=== PATIENT | female | born 1985 | race Two or more races ===

== ENCOUNTER 2021-02-25 11:29 | Outpatient (CLI) | payer OTHER, SELFPAY ==
[2021-02-25 12:31] LABS: Basophils % 0.5 %; Eosinophils # 0.1 10^3/uL (0.0-0.8); Eosinophils % 0.9 %; Hematocrit 30.7 % (37.0-47.0); Hemoglobin 9.6 g/dL (11.5-15.3); Lymphocytes # 1.3 10^3/uL (0.8-4.8); Mean Corpuscular HGB Conc 31.3 g/dL (30.0-36.0); Mean Corpuscular Hemoglobin 23.1 pg (28.0-34.0); Mean Corpuscular Volume 73.8 fl (81-99); Mean Platelet Volume 9.9 fL (7.4-10.4); Monocytes # 0.6 10^3/uL (0.2-0.9); Monocytes % 10.4 %; Neutrophils # 3.71 10^3/uL (1.8-7.7); Neutrophils % 65.2 %; Nucleated Red Blood Cells % 0 %; Platelet Count 198 10^3/cmm (130-400); Red Blood Count 4.16 10^6/uL (4.1-5.3); Red Cell Distribution Width 15.9 % (12.1-15.1); White Blood Count 5.7 10^3/uL (4.0-10.0)
--- NOTE | 2021-02-25 14:49 | ONC FU_ITS ---
Dr. Newman follow up note Patient: Tiara Gutierrez Unit #: [id number]: 1985 Dicatated By: Lisa Newman M.D.Date of Visit:Feb 25, 2021 Onc Med Follow-up/Prog Note History of Present Illness: Mrs Tiara Gutierrez, is a 35-year-old female with a history of iron deficiency anemia due to heavy menses since age 15, as per patient she has taken oral iron off and on ,on many occasions and eventually started having GI intolerance including constipation and later on she switched to supplements which she is tolerating well. But that did not help her much and no significant improvement in iron deficiency anemia eventually she saw her layboy operator when she was in [place], as per patient she was given parenteral iron every week x3 then a week off and then repeat last time she saw her layboy operator in September 2020 as after that she moved to [place], patient established her care with PMD here in [place] and on January 02, 2021, lab work-up done showed white blood count 8.1 hemoglobin 11.5 hematocrit 37.2% platelets 270,000 MCV 78.6. As per patient she has seen [employer] [employer] in the past and was offered hormonal therapy for endometrial hyperplasia which she took it for 3 months and it did help her menses flow, patient was also offered endometrial ablation to slow down menses flow but patient declined as she is considering having more babies. Patient has history of GI bleeding on couple of occasions in the past but not recently, denies any indigestion denies any nausea or vomiting denies any melena or hematochezia. Denies any jaundice denies any shortness of breath or palpitation. Patient also has history of left-sided weakness due to stroke as per patient work-up done at that time did not show the etiology of stroke but she did get clot Buster medicine infusion.,. Patient denies any night sweats, denies any weight loss, denies any recurrent fever, denies any peripheral lymphadenopathy or abdominal fullness Medications: Vitamin and Mineral 1 Tablet Oral daily Allergies: avocados, Bee Venom, Demerol, Demerol, Meperidine HCl, Mushrooms, and Wasp Venom. Review of Systems: Review of Systems is not available for this patient. Vital Signs: Performed on Feb 25, 2021 13:04 Height - 68 in Weight - 143.2 lbs (HIGH) BSA - 1.77 sq.m BMI - 21.77 Temperature - 98.7 F Pulse - 84 /min Respiration - 16 /min BP - 99/63 mm(hg) O2 Sat - 99 % Pain - 0 Fatigue - 6 Performance Status: 0 - Fully active, able to carry on all predisease activities without restrictions. (ECOG) Physical Examination: ENMT - No mouth sores, no thrush, no jaundice, Respiratory - Lungs are clear to auscultation, Cardiovascular - Regular rate and rhythm of heart, Abdomen - Soft, bowel sounds present, Extremities - No visible edema. Lab/Imaging: Most recent lab results are not available for this patient. Impression: Iron deficiency anemia etiology could be multifactorial including but not limited to heavy menstrual periods, or chronic GI blood loss or iron malabsorption. 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 ADHD, PTSD, Anxiety/depression, Chronic lower back pain, Asthma Plan: Discussed with patient regarding her labs white blood count 5.7 hemoglobin 9.6 hematocrit 30.7 platelets 198,000 MCV 73.8 Ferritin checked on January 02, 2021 was 4 Clinically, patient is doing reasonably well now with progressive iron deficiency anemia probably multifactorial including due to heavy menses flow., Patient is following with [employer] physician , As patient has history of GI intolerance to oral iron, and in the recent past she was treated with parenteral iron which she tolerated well, at this point, will consider Injectafer 750 mg IV weekly x2 and then she will return to clinic 1 month after second dose with CBC and iron studies As far as episode of fresh blood per rectum is concerned, could be due to hemorrhoids or anal tear but need to rule out GI pathology, we will refer her to gastroenterology for EGD and colonoscopy. Signed By: Lisa Newman M.D. <<Signature on File>>
== END 2021-02-25 11:30 | disposition home or self-care (01) ==
PROVIDERS: Visit Provider Internal Medicine Hematology & Oncology
DX: D50.9 Iron deficiency anemia, unspecified (principal); Z86.73 Personal history of transient ischemic attack (TIA), and cerebral infarction without residual deficits; F90.9 Attention-deficit hyperactivity disorder, unspecified type; F43.12 Post-traumatic stress disorder, chronic; F41.9 Anxiety disorder, unspecified; F32.9 Major depressive disorder, single episode, unspecified; M54.59 Other low back pain; G89.29 Other chronic pain; J45.909 Unspecified asthma, uncomplicated; Z79.899 Other long term (current) drug therapy
CPT/HCPCS: 36415; 85025; 99204

== ENCOUNTER 2021-03-04 07:14 | Outpatient (CLI) | payer OTHER, SELFPAY ==
[2021-03-04] MEDS: ferric carboxy (IVPB) 750 MG in sodium chloride 0.9% (100 ml) 100 ML 460 MG IV (09:30)
== END 2021-03-04 07:15 | disposition home or self-care (01) ==
PROVIDERS: Visit Provider Internal Medicine Hematology & Oncology
DX: D50.9 Iron deficiency anemia, unspecified (principal)
CPT/HCPCS: 96365; J1439

== ENCOUNTER 2021-03-11 06:48 | Outpatient (CLI) | payer OTHER, SELFPAY ==
[2021-03-11] MEDS: ferric carboxy (IVPB) 750 MG in sodium chloride 0.9% (100 ml) 100 ML 460 MG IV (09:00)
== END 2021-03-11 06:49 | disposition home or self-care (01) ==
PROVIDERS: PCP Nurse Practitioner; Visit Provider Internal Medicine Hematology & Oncology
DX: D50.9 Iron deficiency anemia, unspecified (principal)
CPT/HCPCS: 96365; J1439

== ENCOUNTER → 2021-04-21 11:11 | Outpatient (BNVA) | payer OTHER, SELFPAY | PROVIDERS: PCP Nurse Practitioner; Referring Provider Nurse Practitioner; Visit Provider Specialist | DX: R41.3 Other amnesia (principal); R53.1 Weakness; G43.109 Migraine with aura, not intractable, without status migrainosus | CPT/HCPCS: 99204 ==

== ENCOUNTER 2021-04-29 10:11 | Outpatient (CLI) | payer OTHER, SELFPAY ==
[2021-04-29 10:34] LABS: Basophils % 0.3 %; Eosinophils % 0.1 %; Hematocrit 37.6 % (37.0-47.0); Hemoglobin 12.1 g/dL (11.5-15.3); Lymphocytes # 0.7 10^3/uL (0.8-4.8); Lymphocytes % 10.6 %; Mean Corpuscular HGB Conc 32.2 g/dL (30.0-36.0); Mean Corpuscular Hemoglobin 27.2 pg (28.0-34.0); Mean Corpuscular Volume 84.5 fl (81-99); Mean Platelet Volume 10.8 fL (7.4-10.4); Monocytes # 0.5 10^3/uL (0.2-0.9); Monocytes % 7.1 %; Neutrophils % 81.6 %; Nucleated Red Blood Cells % 0 %; Platelet Count 211 10^3/cmm (130-400); Red Blood Count 4.45 10^6/uL (4.1-5.3); Red Cell Distribution Width 21.1 % (12.1-15.1); White Blood Count 6.9 10^3/uL (4.0-10.0)
[2021-04-29 11:04] LABS: Ferritin 237 ng/mL (15-150); Iron 79 ug/dL (37-145); Percent Saturation 35.5 % (20-50); Total Iron Binding Capacity 222 mcg/dl; Unsaturated Iron Binding 143 ug/dL (112-347)
--- NOTE | 2021-04-30 16:47 | ONC FU_ITS ---
Dr. Newman follow up note Patient: Tiara Gutierrez Unit #: [id number]: 1985 Dicatated By: Lisa Newman M.D.Date of Visit:Apr 29, 2021 Onc Med Follow-up/Prog Note History of Present Illness: Mrs Tiara Gutierrez, is a 35-year-old female with a history of iron deficiency anemia due to heavy menses since age 15, as per patient she has taken oral iron off and on ,on many occasions and eventually started having GI intolerance including constipation and later on she switched to supplements which she is tolerating well. But that did not help her much and no significant improvement in iron deficiency anemia eventually she saw her outpatient surgery rn when she was in [place], as per patient she was given parenteral iron every week x3 then a week off and then repeat last time she saw her outpatient surgery rn in September 2020 as after that she moved to [place], patient established her care with PMD here in [place] and on January 02, 2021, lab work-up done showed white blood count 8.1 hemoglobin 11.5 hematocrit 37.2% platelets 270,000 MCV 78.6. As per patient she has seen [facility] in the past and was offered hormonal therapy for endometrial hyperplasia which she took it for 3 months and it did help her menses flow, patient was also offered endometrial ablation to slow down menses flow but patient declined as she is considering having more babies. Patient has history of GI bleeding on couple of occasions in the past but not recently, denies any indigestion denies any nausea or vomiting denies any melena or hematochezia. Denies any jaundice denies any shortness of breath or palpitation. Patient also has history of left-sided weakness due to stroke as per patient work-up done at that time did not show the etiology of stroke but she did get clot Buster medicine infusion.,. Patient denies any night sweats, denies any weight loss, denies any recurrent fever, denies any peripheral lymphadenopathy or abdominal fullness Status post Injectafer 750 mg weekly x2 in February 2021 with excellent response e.g. normalization of iron deficiency anemia Came for follow-up, denies any specific complaints, no fever chills, no nausea or vomiting, no diarrhea or constipation, no melena hematochezia, no hemoptysis hematemesis, no more episode of fresh blood per rectum, as per patient she was scheduled to see Dr. Linares last week but canceled it due to bad weather, now she will call and reschedule for EGD and colonoscopy. She was given parenteral iron Injectafer 750 mg weekly x2 in February 2021, tolerated well, since then she is feeling more energetic Medications: Vitamin and Mineral 1 Tablet Oral daily Allergies: avocados, Bee Venom, Demerol, Demerol, Meperidine HCl, Mushrooms, and Wasp Venom. Review of Systems: Review of Systems is not available for this patient. Vital Signs: Performed on Apr 29, 2021 13:40 Height - 68.00 in Weight - 136.8 lbs (LOW) BSA - 1.74 sq.m BMI - 20.80 Temperature - 98.0 F (LOW) Pulse - 88 /min Respiration - 16 /min BP - 107/64 mm(hg) O2 Sat - 99 % Pain - 0 Fatigue - 4 Performance Status: 0 - Fully active, able to carry on all predisease activities without restrictions. (ECOG) Physical Examination: ENMT - No mouth sores, no thrush, no jaundice, Respiratory - Lungs are clear to auscultation, Cardiovascular - Regular rate and rhythm of heart, Abdomen - Soft, bowel sounds present, Extremities - No visible edema. Lab/Imaging: Most recent lab results are not available for this patient. Impression: Iron deficiency anemia etiology could be multifactorial including but not limited to heavy menstrual periods, or chronic GI blood loss or iron malabsorption. 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 Linares's office to reschedule EGD and colonoscopy, which was canceled earlier due to bad weather. Return to clinic in 3 months with CBC and iron studies Signed By: Lisa Newman M.D. <<Signature on File>>
== END 2021-04-29 10:12 | disposition home or self-care (01) ==
PROVIDERS: PCP Nurse Practitioner; Visit Provider Internal Medicine Hematology & Oncology
DX: D50.9 Iron deficiency anemia, unspecified (principal); I69.892 Facial weakness following other cerebrovascular disease; F90.9 Attention-deficit hyperactivity disorder, unspecified type; F43.10 Post-traumatic stress disorder, unspecified; F41.8 Other specified anxiety disorders; G89.4 Chronic pain syndrome; M54.9 Dorsalgia, unspecified; J45.909 Unspecified asthma, uncomplicated
CPT/HCPCS: 36415; 82728; 83540; 83550; 85025; 99214